=== PATIENT | female | born 1965 | race Caucasian/White ===

== ENCOUNTER 2017-03-09 15:28 | Outpatient (CLI) ==
[2017-03-11 09:32] VITALS: BMI 33.6
== END 2017-03-09 15:29 | disposition critical access hospital (66) ==
LOC: AMBL 15:28
PROVIDERS: ATTEND Emergency Medicine
DX: S09.93XA Unspecified injury of face, initial encounter (principal); Y04.8XXA Assault by other bodily force, initial encounter

== ENCOUNTER 2017-03-09 15:44 | Emergency (ER) ==
[2017-03-09 15:57] VITALS: BP 145/94; TEMP 98.2; BMI 33.6
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
--- NOTE | 2017-03-09 17:03 | CT ---
EXAM: CT of the maxillofacial region without contrast History: Facial trauma. Technique: Multiplanar CT images through the maxillofacial region were obtained without the administ ration of IV contrast Findings: Orbits are intact. The visualized intracranial contents demonstrate no grossly acute find ings. No parotid or submandibular gland inflammation. Mildly displaced left nasal bone fracture wit h adjacent soft tissue swelling. There is also a mildly displaced fracture of the left medial orbital wall that is probably old. There is mild to moderate mucosal thickening of the ethmoid air cells and sphenoid sinuses. There is mild mucosal thickening of the bilateral maxillary sinuses. Mild mucosa l thickening of the frontal sinuses. Nasal septum is undulating. There is a fracture within the ade al septum proximally and within its midportion which are minimally displaced. Moderate degenerative disc disease at C5-6. Multiple missing teeth and multiple dental caries. Periapical dental lucencie s involving right mandibular tooth. Mastoid air cells are generally clear. Impression: 1. Mildly displaced left nasal bone fracture. 2. Nondisplaced fractures of the nasal septum. 3. Most likely old left medial orbital wall fracture. 4. Paranasal sinusitis.
== END 2017-03-09 17:26 | disposition home or self-care (01) ==
LOC: ED 15:44
DX: R04.0 Epistaxis (principal); S09.93XA Unspecified injury of face, initial encounter; Y04.2XXA Assault by strike against or bumped into by another person, initial encounter; F17.210 Nicotine dependence, cigarettes, uncomplicated
CPT/HCPCS: 99283

== ENCOUNTER 2017-08-03 09:37 | Outpatient (CLI) ==
[2017-08-03 15:06] VITALS: BMI 36.8
== END 2017-08-03 09:42 | disposition critical access hospital (66) ==
LOC: AMBL 09:37
PROVIDERS: ATTEND Internal Medicine Geriatric Medicine
DX: R55 Syncope and collapse (principal); R06.02 Shortness of breath; R19.7 Diarrhea, unspecified; R06.2 Wheezing; W19.XXXA Unspecified fall, initial encounter

== ENCOUNTER 2017-08-03 09:50 | Inpatient (IN) ==
--- NOTE | 2017-08-03 10:19 | ED.PDOC ---
General ED Provider: Dr. IAN MCGARRY Chief Complaint: Respiratory Complaint Stated Complaint: Patient is a 52 year old female who comes to the ER with c/o Shortness of Air x 3 days, nonproductive cough and Body aches. Also complains of diarrhea x 2 days with Low grade temp, 99.3. She states she has taken Mucinex and Ibuprofen. States she has not taking any Med for a couple days. Had syncopal episode at home but remembers everything. Time Seen by Physician: 10:16 Mode of Arrival: Stretcher Information Source: Patient Exam Limitations: No limitations Primary Care Provider: RISHABH MATAMOROS Nursing and Triage Documentation Reviewed and Agree: Yes Reviewed sepsis parameters & appropriate labs ordered?: No (does not qualify.) System Inflammatory Response Syndrome: Not Applicable Sepsis Protocol: For patient's 13 years and over: Temp is 96.8 and below OR 101 and greater Pulse >90 BPM Resp >20/minute Acutely Altered Mental Status Are patient's symptoms suggestive of a new infection, such as: -Pneumonia -Skin, Soft Tissue -Endocarditis -UTI -Bone, Joint Infection -Implantable Device -Acute Abdominal Infection -Wound Infection -Meningitis -Blood Stream Catheter Infection -Unknown System Inflammatory Response Syndrome: Not Applicable Review of Systems - Review Of Systems Constitutional: Reports: Chills, Fever, Malaise, Loss of appetite Eyes: Reports: No symptoms Ears, Nose, Mouth, Throat: Reports: No symptoms Respiratory: Reports: Cough, Short of air, Wheezing Cardiac: Reports: No symptoms GI: Reports: No symptoms : Reports: No symptoms Musculoskeletal: Reports: No symptoms Skin: Reports: No symptoms Neurological: Reports: Anxiety Endocrine: Reports: No symptoms Hematologic/Lymphatic: Reports: No symptoms All Other Systems: Reviewed and Negative Past Medical History - Past Medical History Previously Healthy: Yes Endocrine: Reports: Hypothyroid, Dyslipidemia Cardiovascular: Reports: None Respiratory: Reports: None Hematological: Reports: None Gastrointestinal: Reports: None Genitourinary: Reports: Kidney stones Neuro/Psych: Reports: Anxiety, Depression Musculoskeletal: Reports: None Cancer: Reports: None Last Menstrual Period: unknown Other Pertinent Past Medical History: 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 - Surgical History General Surgical History: Reports: , Cholecystectomy, Other (lip surgery; eye surgery; Bartholin Gland surgery; ) - Family History Family History: Reports: None - Social History Smoking Status: Heavy tobacco smoker, Current every day smoker Hx Substance Use: No Alcohol Screening: None Physical Exam - Physical Exam Appearance: Ill-appearing, Obese Ill-appearing: Mild Pain Distress: Mild Eyes: SEPIDEH Neck: Supple Respiratory: Airway patent, Breath sounds equal, Breath sounds diminished, Respirations nonlabored, Rhonchi, Wheezes Cardiovascular: RRR, Pulses normal, No rub, No murmur GI/: Soft, Nontender, No masses, Bowel sounds normal, No Organomegaly Musculoskeletal: Normal strength, ROM intact, No edema, No calf tenderness Skin: Warm, Dry, Normal color Neurological: Sensation intact, Motor intact, Alert, Oriented Psychiatric: Anxious Interpretation - Radiology Interpretation Radiology Interpretation By: Radiologist Radiology Results: Negative Exam Interpreted: CXR Physician Notification - Case Discussed Physician Notified: Dr Preston Time of Notification: 12:40 (ok to admit ) Critical Care Note - Critical Care Note Total Time (mins): 0 Course - Course Hematology/Chemistry: 08/03/17 11:05 08/03/17 11:05 Orders, Labs, Meds: Lab Review 08/03/17 08/03/17 08/03/17 10:30 10:39 11:05 WBC 7.89 RBC 4.46 Hgb 14.1 Hct 42.4 MCV 95.1 MCH 31.6 H MCHC 33.3 RDW Coeff of Stacey 13.4 Plt Count 147 Immature Gran % (Auto) 0.5 Neut % (Auto) 67.6 Lymph % (Auto) 21.4 Graves % (Auto) 10.1 H Eos % (Auto) 0.0 Baso % (Auto) 0.4 Immature Gran # (Auto) 0.0 Neut # 5.3 Lymph # 1.7 Graves # 0.8 Eos # 0.0 Baso # 0.0 Puncture Site Rrad O2 Saturation 91.0 L ABG pH 7.435 ABG pCO2 34.0 L ABG pO2 59.0 L* ABG HCO3 22.8 ABG Total CO2 24 ABG Base Excess -1 Oren Test + FiO2 % 21.0 Sodium Potassium Chloride Carbon Dioxide Anion Gap BUN Creatinine Estimated GFR (MDRD) BUN/Creatinine Ratio Glucose Lactic Acid Calcium Total Bilirubin AST ALT Alkaline Phosphatase Total Protein Albumin Globulin Albumin/Globulin Ratio Procalcitonin Influenza A (Rapid) Negative by naat Influenza B (Rapid) Positive by naat H 08/03/17 08/03/17 08/03/17 11:05 11:05 11:05 WBC RBC Hgb Hct MCV MCH MCHC RDW Coeff of Stacey Plt Count Immature Gran % (Auto) Neut % (Auto) Lymph % (Auto) Graves % (Auto) Eos % (Auto) Baso % (Auto) Immature Gran # (Auto) Neut # Lymph # Graves # Eos # Baso # Puncture Site O2 Saturation ABG pH ABG pCO2 ABG pO2 ABG HCO3 ABG Total CO2 ABG Base Excess Oren Test FiO2 % Sodium 134 L Potassium 3.1 L Chloride 102 Carbon Dioxide 21 Anion Gap 14.1 BUN 7 Creatinine 0.83 Estimated GFR (MDRD) 73.00 BUN/Creatinine Ratio 8.43 Glucose 119 H Lactic Acid 8.0 Calcium 8.5 Total Bilirubin 0.3 AST 23 ALT 21 Alkaline Phosphatase 91 Total Protein 7.6 Albumin 3.1 L Globulin 4.5 Albumin/Globulin Ratio 0.69 Procalcitonin 0.07 Influenza A (Rapid) Influenza B (Rapid) Orders Category Date Time Status [facility] ADMISSION 08/03/17 12: 45 Active ABG DRAW REQUEST Stat CARDIO 08/03/17 10:41 Completed NEBULIZER TREATMENT Stat CARDIO 08/03/17 10:41 Completed TELEMETRY MONITORING TELE CARE 08/03/17 12:49 Active ABG Stat LAB 08/03/17 10:39 Completed BLOOD CULTURE (ED ONLY) Stat LAB 08/03/17 11:05 Received CBC W/ AUTO DIFF Stat LAB 08/03/17 11:05 Completed CMP [COMPREHENSIVE METABOLIC PANEL] Stat LAB 08/03/17 11:05 Completed FLU A/B MOLECULAR Stat LAB 08/03/17 10:30 Completed INFLUENZA A&B AB, QUANT Stat LAB 08/03/17 11:55 Received LACTIC ACID Stat LAB 08/03/17 11:05 Completed PROCALCITONIN Stat LAB 08/03/17 11:05 Completed RAPID STREP SCREEN [MOLECULAR GROUP A STREP] Stat LAB 08/03/17 10:30 Completed SPUTUM CULTURE Stat LAB 08/03/17 12:44 Uncollected Ipratropium/Albuterol Neb [Duoneb] MEDS 08/03/17 10:39 Discontinued 1 vial NEB ONCE STA Methylprednisolone Sod Succ/Pf [Solu-Medrol 125 mg] MEDS 08/03/17 10:40 Discontinued 125 mg IVP ONCE STA Oseltamivir Phosphate [Tamiflu] MEDS 08/03/17 12:21 Discontinued 75 mg PO ONCE STA CHEST, 2 VIEWS PA & LAT Stat RADS 08/03/17 10:40 Completed Medications Discontinued Medications Generic Name Dose Route Start Last Admin Trade Name [place] PRN Reason Stop Dose Admin Albuterol/Ipratropium 1 vial 08/03/17 10:39 08/03/17 11:30 Duoneb NEB 08/03/17 10:40 1 vial ONCE STA Administration Methylprednisolone Sodium Succinate 125 mg 08/03/17 10:40 08/03/17 11:09 Solu-Medrol 125 Mg IVP 08/03/17 10:41 125 mg ONCE STA Administration Oseltamivir Phosphate 75 mg 08/03/17 12:21 08/03/17 12:30 Tamiflu PO 08/03/17 12:22 75 mg ONCE STA Administration Vital Signs: Temp Pulse Resp BP Pulse Ox 08/03/17 09:52 99.3 F 95 H 24 105/59 L 96 Departure - Departure Time of Disposition: 12:51 Disposition: ADMITTED INPATIENT Discharge Problem: Influenza B, Bronchitis, Hypoxia, Hypokalemia Condition: Stable Pt referred to PMD for follow-up: No IPMP verified?: No Allergies/Adverse Reactions: Allergies codeine Adverse Reaction (Verified 08/03/17 09:59) Home Medications: Ambulatory Orders 1 [No Reported Medications] 03/09/17 Disposition Discussed With: Patient
[2017-08-03] MEDS ORDERED: DUONEB NEB STA (10:39)
[2017-08-03] MEDS ORDERED: SOLU-MEDROL 125 MG IVP STA (10:40)
--- NOTE | 2017-08-03 11:14 | DI ---
EXAM: PA and lateral views of the chest HISTORY: Cough COMPARISON: 06/06/2012 FINDINGS: No focal consolidation, pleural effusion or pneumothorax is seen. A right basilar calcified granulom a is re-identified. The cardiomediastinal silhouette is within normal limits. IMPRESSION: No acute cardiopulmonary findings. Evidence of prior granulomatous infection.
[2017-08-03] MEDS ORDERED: TAMIFLU PO STA (12:21)
[2017-08-03] MEDS: INFUVITE ADULT 10 ML in D5%-NS-KCL 20 MEQ/L IV SOL 1,000 ML IV SCH (14:13)
[2017-08-03] MEDS ORDERED: INFUVITE ADULT IV ONE (14:16)
[2017-08-03] MEDS: LOVENOX SUBCUT SCH (14:17)
[2017-08-03 15:06] VITALS: BMI 36.8
[2017-08-03] MEDS: NORCO 5-325 PO PRN ×2 (16:47→22:51)
[2017-08-03] MEDS: DUONEB NEB SCH ×2 (17:05→23:30)
[2017-08-03] MEDS: TAMIFLU PO SCH (20:07)
[2017-08-04] MEDS ORDERED: INFUVITE ADULT IV ONE ×2 (02:01→14:04)
[2017-08-04] MEDS: INFUVITE ADULT 10 ML in D5%-NS-KCL 20 MEQ/L IV SOL 1,000 ML IV SCH ×2 (02:10→14:16)
[2017-08-04] MEDS: DUONEB NEB SCH ×4 (05:41→23:29)
[2017-08-04] MEDS: NORCO 5-325 PO PRN ×3 (07:39→20:16)
[2017-08-04] MEDS: TAMIFLU PO SCH ×2 (08:59→20:16)
[2017-08-04] MEDS: LOVENOX SUBCUT SCH (08:59)
[2017-08-04] MEDS ORDERED: TUSSIONEX PO SCH (22:00)
[2017-08-04] MEDS ORDERED: ROCEPHIN ONE (22:48)
[2017-08-04] MEDS: ROCEPHIN 2 GM in SODIUM CHLORIDE 100 ML IV SCH (22:58)
[2017-08-05] MEDS ORDERED: MOTRIN PO STA (02:36)
[2017-08-05] MEDS ORDERED: INFUVITE ADULT IV ONE ×2 (03:02→16:44)
[2017-08-05] MEDS: INFUVITE ADULT 10 ML in D5%-NS-KCL 20 MEQ/L IV SOL 1,000 ML IV SCH ×2 (03:10→16:49)
[2017-08-05] MEDS: DUONEB NEB SCH ×3 (05:27→18:10)
[2017-08-05] MEDS: TUSSIONEX PO SCH ×2 (08:35→20:51)
[2017-08-05] MEDS: LOVENOX SUBCUT SCH (08:35)
[2017-08-05] MEDS: ROCEPHIN 2 GM in SODIUM CHLORIDE 100 ML IV SCH (08:35)
[2017-08-05] MEDS: TAMIFLU PO SCH ×2 (08:35→20:51)
[2017-08-05] MEDS ORDERED: MOTRIN PO ONE (20:00)
[2017-08-06] MEDS: DUONEB NEB SCH ×5 (00:10→23:03)
[2017-08-06] MEDS ORDERED: INFUVITE ADULT IV ONE (04:30)
[2017-08-06] MEDS: INFUVITE ADULT 10 ML in D5%-NS-KCL 20 MEQ/L IV SOL 1,000 ML IV SCH (05:19)
[2017-08-06] MEDS: ROCEPHIN 2 GM in SODIUM CHLORIDE 100 ML IV SCH (09:11)
[2017-08-06] MEDS: TUSSIONEX PO SCH ×2 (09:12→20:46)
[2017-08-06] MEDS: LOVENOX SUBCUT SCH (09:12)
[2017-08-06] MEDS: TAMIFLU PO SCH ×2 (09:12→20:46)
[2017-08-07] MEDS: DUONEB NEB SCH ×4 (04:48→20:30)
[2017-08-07] MEDS: TAMIFLU PO SCH ×2 (08:30→20:50)
[2017-08-07] MEDS: TUSSIONEX PO SCH ×2 (08:30→20:50)
[2017-08-07] MEDS: LOVENOX SUBCUT SCH (08:31)
[2017-08-07] MEDS ORDERED: ROCEPHIN 2 GM in SODIUM CHLORIDE 50 ML IV SCH (09:00)
[2017-08-07] MEDS ORDERED: LIDOCAINE HCL 1% SDV IM STA (12:13)
--- NOTE | 2017-08-07 12:36 | CT ---
EXAM: CT chest without contrast. HISTORY: Shortness of breath, cough. COMPARISON: Radiograph 08/03/2017. TECHNIQUE: Multiple axial images of the chest were obtained without intravenous contrast. Images we re reformatted in the sagittal and coronal planes. FINDINGS: Calcified mediastinal and right hilar lymph nodes are present. There is a small amount pe ricardial fluid. Heart size is normal. Peribronchial thickening with centrilobular nodules seen thr oughout both lungs. Calcified granulomatous changes are present. No pleural effusion or pneumothora x identified. Limited images of the upper abdomen demonstrate no acute finding. Degenerative changes seen in the s pine. IMPRESSION: Bilateral bronchial thickening and centrilobular nodules suggesting airways infection/inflammation. Follow-up CT in 3 months recommended for reassessment.
--- NOTE | 2017-08-07 12:49 | PN ---
DATE OF VISIT: 08/05/17 SUBJECTIVE: The patient is alert, responsive and cooperative with movement of all extremities. She told me that she is feeling better today. She is eating most of her meals, 100%. OBJECTIVE: V/S: 5:38 p.m. showed a temperature of 97.4, pulse 71, blood pressure 115/81, respiratory rate 20, oxygen saturation 97 on 2L. CHEST: Symmetrical and equal with good expansion. LUNGS: Bilateral expiratory wheezing, lower lobes. No rales. HEART: Audible and regular with good tones. ABDOMEN: Nontender. LOWER EXTREMITIES: Legs have no tenderness. LABS: Today showed WBC 8.77, hemoglobin 12.6, hematocrit 37.9. Chemistry normal except for a low albumin 2.7, 3.1 on admission. This patient was positive for Influenza B. Still do not have the antibodies for Influenza A and B. [facility]
--- NOTE | 2017-08-07 13:07 | PN ---
DATE OF VISIT: 08/06/17 SUBJECTIVE: The patient is alert and oriented. She is feeling better. Her appetite is good. OBJECTIVE: V/S at 1:59 p.m. showed a temperature of 98, pulse 73, BP 106/67, respiratory rate 20, oxygen saturation 95% on 2L. It is sometimes listed as room air. I need to make sure that labeling of these are correct. It is very important that these things are labeled correctly with the oxygen saturation. I will bring this up tomorrow with the nurses. LUNGS: Now have clear breath sounds and no wheezing anymore including the bases. HEART: Audible and regular with good tones. PLAN: 1. Will get labs tomorrow plus arterial blood gases. 2. Chest x-ray if not already ordered. CONDITION: Improved. MTDD
[2017-08-07] MEDS: ROCEPHIN IM SCH (13:11)
--- NOTE | 2017-08-07 13:39 | PN ---
DATE OF VISIT: 08/04/17 SUBJECTIVE: The patient today is alert, still not feeling well with repetitive cough, mostly nonproductive. This patient came in because of shortness of breath, cough and was positive for Influenza B by nuclear amplification. OBJECTIVE: Vital signs at 5:44 p.m.: Temperature 98.3, pulse 86, BP 127/86, respiratory rate 18, oxygen saturation 96 on room air. NECK: No rigidity. No adenitis. LUNGS: Breath sounds are heard on both sides, diminished with respiratory wheezing on both lower lung mensah. HEART: Audible and regular with good tones. ABDOMEN: Nontender. This patient is receiving Tamiflu only. The patient will give given 2 gm of Rocephin intravenously beginning tonight. CBC plus CMP will be ordered tomorrow. Blood culture is still negative. MTDD
[2017-08-07] MEDS: INFUVITE ADULT 10 ML in D5%-NS-KCL 20 MEQ/L IV SOL 1,000 ML IV SCH (14:16)
[2017-08-07] MEDS: AVELOX PO SCH (17:24)
[2017-08-08] MEDS: DUONEB NEB SCH ×4 (06:10→20:15)
[2017-08-08] MEDS: AVELOX PO SCH (06:25)
[2017-08-08] MEDS: TUSSIONEX PO SCH (08:04)
[2017-08-08] MEDS: TAMIFLU PO SCH (08:05)
[2017-08-08] MEDS: ROCEPHIN IM SCH (08:05)
[2017-08-08] MEDS: LOVENOX SUBCUT SCH (08:06)
[2017-08-08] MEDS: SYNTHROID PO SCH (10:25)
[2017-08-08] MEDS ORDERED: GENTAMICIN SULFATE ONE (19:32)
[2017-08-08] MEDS: GENTAMICIN SULFATE 80 MG in SODIUM CHLORIDE 50 ML IV SCH ×2 (19:40→20:45)
--- NOTE | 2017-08-08 19:43 | DI ---
EXAM: Two-view chest HISTORY: Follow up bronchitis COMPARISON: Two-view chest 08/03/2017 FINDINGS: The cardiomediastinal silhouette is stable. There is a calcified granuloma at the right lung base.. There is no evidence of infiltrate or effusion. Degenerative changes are seen within th e mid and lower dorsal spine. IMPRESSION: No evidence of active pulmonary disease. Benign granulomatous changes
[2017-08-09] MEDS: DUONEB NEB SCH ×3 (05:10→14:08)
[2017-08-09] MEDS: AVELOX PO SCH (05:32)
[2017-08-09] MEDS: GENTAMICIN SULFATE 80 MG in SODIUM CHLORIDE 50 ML IV SCH ×2 (05:32→13:16)
[2017-08-09] MEDS: SYNTHROID PO SCH (05:32)
[2017-08-09] MEDS ORDERED: ROCEPHIN 2 GM in SODIUM CHLORIDE 50 ML IV SCH (09:00)
[2017-08-09] MEDS: LOVENOX SUBCUT SCH (09:27)
[2017-08-09 17:05] VITALS: BP 126/87; TEMP 97.3
--- NOTE | 2017-08-13 07:09 | PN ---
DATE OF VISIT: 08/08/17 SUBJECTIVE: The patient is alert, oriented times four, not dyspneic or tachypneic without any oxygen now. She had been walking in the hallway. The nurses were telling me that she had been going out to smoke and had done several times. I did asked her if she smokes and she said, "yes a little bit". I did advise her that she could not smoke at all while she is having this problem. She was wheezing yesterday and that is probably the reason why the wheezing had reoccurred because of her smoking. I did tell her today that she absolutely could not smoke if she wants to get better. I also advised her that she has a hypothyroid condition and she was initiated on a medication to replace her thyroid hormones. OBJECTIVE: LUNGS: Have squeaks at the bases, more on the right side. There is no expiratory wheezing. VITAL SIGNS: At 5:42 p.m. today showed a temperature 97.5, pulse rate of 92, BP 116/78, respiratory rate 24, oxygen saturation 92 on room air. She had saturation as high as 97 on room air. Sputum did grow gram negative coccobacilli , heavy growth. The patient's medication will be changed probably to Garamycin. The patient might have Pseudomonas or Klebsiella. We are waiting for the ID. Blood cultures negative after five days. The patient's medications Ceftriaxone and Moxifloxacin. The Ceftriaxone would probably be changed to Garamycin. The patient did not have a CBC or chemistry today. GFR yesterday was 95 and the day before. She is only allergic to Codeine. The patient is 228 lbs. She will be given Garamycin 70 mg intravenously q.8hr. Chest x-ray also will be done tomorrow plus a CBC and CMP. An arterial blood gas may be done but I will not order it until tomorrow. [facility]
--- NOTE | 2017-08-13 14:01 | HP ---
CHIEF COMPLAINT: Shortness of breath, bodyaches, nonproductive cough, low grade temperature, diarrhea and near syncopal episode. The patient has total recall of what happened. HISTORY OF PRESENT ILLNESS: The patient presented to the office because of the persistent shortness of breath which has now lasted for three days with low grade temperature. The patient was found to have wheezing and rhonchi while in the emergency room but the chest x-ray does not indicate any abnormalities. The arterial blood gases were abnormal showing moderate hypoxemia. Rapid A & B by nuclear amplification showed a positive Influenza B. The patient the need for hospitalization because of the moderate hypoxemia, fever, rhonchi plus wheezing. PAST PERSONAL HISTORY: The patient had kidney stones in the past, detached retina (was operated), two sections, Bartholin Gland cyst was removed by surgery, cholecystectomy. The patient also had been diagnosed with depression and anxiety plus arthritis and headaches occasional. The patient was diagnosed with hypothyroidism in the past but the patient does not have any medication for this. She had taken Mucinex and Ibuprofen prior to presentation to the emergency room for the above problem. FAMILY HISTORY: History of diabetes on the maternal side of the family. SOCIAL HISTORY: The patient is and resides with her and her father. She does smoke cigarettes and moderate user. She told me that she stopped smoking before she came to the hospital. She denied any alcohol use. MEDICATIONS: (PRIOR TO ADMISSION) None except the Mucinex and Ibuprofen. No long-term medications given. ALLERGIES: CODEINE REVIEW OF SYSTEMS: CONSTITUTIONAL: The patient had low grade fever but no chills just some fatigue. ANESTHESIOLOGIST ASSISTANT CERTIFIED: The patient had syncopal episode with total recall of what happened. No residual motor weakness after the syncope. The patient has seizures. VISUAL: The patient denies any double vision, blurred vision or transient loss of vision. AUDITORY: The patient is able to hear and denies any tinnitus, pain or drainage. RESPIRATORY: The patient has nonproductive cough most of the time repetitive with some shortness of breath. Arterial blood gases are abnormal. pH 7.435, oxygen saturation 91, pc02 34, p02 59, base excess minus 1, FI02 21%. CARDIOVASCULAR: The patient denies any chest pain or chest oppression. GASTROINTESTINAL: The patient had diarrhea about two days prior to presentation. No significant abdominal pain. GENITOURINARY: Denies any burning on urination. MUSCULOSKELETAL: The patient has bodyaches, less generalized. ENDOCRINE: The patient has history of hypothyroidism but not on any medication. INTEGUMENT: Denies any rash or pruritus. HEMATOLOGIC: No history of prolonged bleeding or easy bruising. PSYCHIATRIC: Affect appears to be normal. PHYSICAL EXAMINATION: GENERAL: 52-year-old female admitted to the hospital because of cough , fever, moderate hypoxemia with rales and wheezing but a negative chest x-ray for any cardiopulmonary disease. VITAL SIGNS: On admission to the floor, temperature 98.1, pulse 72, BP 100/62 left; 107/74 right, respiratory rate 20, oxygen saturation 94 with 2L of nasal oxygen. HEAD: Unremarkable. Face is symmetrical and equal. No facial weakness. No redness. No significant tenderness to palpation and/or pressure in the frontomaxillary sinus areas. EYES: Pupils equal/reactive to light about 3 mm in size. Conjunctivae not pale. Sclerae not icteric. MOUTH: Unremarkable. THROAT: No inflammation, tumors or exudate. NECK: No masses. No bruit. No tenderness. No rigidity. CHEST: Essentially symmetrical and equal with good expansion. LUNGS: Breath sounds are heard on both sides, diminished with expiratory wheezing at both bases. HEART: Audible and regular with good tones. No murmurs. ABDOMEN: Slightly protuberant, pendulous, soft, no significant tenderness. No masses palpable. Bowel sounds active. No bruit. EXTERNAL GENITALIA: Not examined. PELVIC/RECTAL: Not performed. LOWER EXTREMITIES: Symmetrical and equal. Pedal pulses are present but posterior tibials are very difficult to find. UPPER EXTREMITIES: Symmetrical and equal. ASSESSMENT: 1. ACUTE BRONCHITIS, PROBABLY VIRAL 2. HYPOXEMIA SECONDARY TO #1 3. CHRONIC TOBACCO USE AND ABUSE, PERSISTENT 4. VIRAL SYNDROME, INFLUENZA B POSITIVE BY NUCLEAR AMPLIFICATION 5. ELEVATED BMI, 36.8 6. HISTORY OF CHOLECYSTECTOMY 7. TWO SECTIONS 8. RETINAL DETACHMENT 9. EXCISION OF BARTHOLIN CYST 10. LIP SURGERY MTDD
--- NOTE | 2017-08-15 09:54 | DS ---
PATIENT IDENTIFICATION: 52 year old female admitted to the hospital by the emergency room because of cough, muscular aches, shortness of breath in the last three days prior to presentation. She also did experience syncopal episode at home with total recollection of what happened. The patient had taken ibuprofen and Mucinex for the problems. The patient at the emergency room had an arterial blood gasses showing normal pH with moderate hypoxemia with FiO2 21%. Chest x- ray showed no acute cardiopulmonary processes and CBC was normal. Chemistry showed slightly lower potassium at 3.1. The patient was noted to have rhonchi at the emergency room as well as wheezing. The patient at time of my examination had expiratory wheezing in both lower chest mensah. The patient had a positive influenza B but nuclear amplification and she was then medicated with Tamiflu 75mg twice a day. The sputum cultures and blood cultures were obtained prior to the antibiotics administration. This patient claimed to have no prior medications except the Mucinex and ibuprofen. The patient while in the emergency room was given a dose of Methylprednisolone 125mg once and DUO NEBS nebulizer. HOSPITAL COURSE: The patient while in the hospital was continued on DUO NEBS nebulizer Q 6 hours with Lovenox 30mg SUBCUT daily, Tamiflu 75mg every 12 hours for 5 days. The patient was given intervenous Dextrose 5% normal saline with 20ml of KCL and MVI. She also was given Rocephin 2 grams intervenously daily and Moxifloxacin 400mg daily orally. Sputum culture did show gram negative coccobacilli and Ceftriaxone was discontinued and replaced with Gentamicin. However after identification of the bacteria, Haemophilus influenza the medication was changed back to Ceftriaxone and then discharged with Omnicef. I did touch base with the Pharm D with regards to the Ceftriaxone sensitivity to Haemophilus influenza and Omnicef is a third generation whether that would be a suitable oral replacement. The pharmacy did agree that it would be suitable to give Omnicef. The patient had a chest CT 08/07/17 because of persistent wheezing although it disappeared the day before. I came to know that the patient had been out several times to smoke and the patient had been telling me that she had stopped smoking before she came into the hospital. I did discuss this with the patient that it would not brar for her to be smoking since she has lung problems and it is an active problem. The CT chest showed some bilateral bronchiolar thickening and central lobular nodules suggesting airway infection or inflammation. Repeat CT follow in 3 months. Blood cultures were negative and the Influenza A and B antibodies showed a titer 1:32A and 1:8 for B. It would be reasonable to repeat these antibody titers in about 2-3 weeks from the time of discharge. The patient on 08/08/17 again went out to smoke. I did talk to Aracely Venecia and she told me that the patient even asked Afshan, who is the nurse that was working with her, if she has any cigarettes. The patient on the day of discharge was alert, ambulatory with dyspneic or tachypneic and no cyanosis. The CBC showed normal WBC 8,760, RBC 4.03, hgb 13, hct 39.1, MCV 97 , MCH 32.3, slightly elevated. Chemistry is normal except for slightly lower albumin 3.0. The patient's TSH was elevated 39.385 and repeated on 08/07/17 the same day the report was 51.776. This patient initially mentioned that she had some thyroid problems but there is no medication for the problem. The free T3 is 1.7 with normal range of 2.0 to 4.4. Total T4 lowest border 4.6 range of normal 4.5 to 12. The patient's procalcitonin was normal on admission. This patient was initiated on 25mcg of Synthroid and to be increased every 3 weeks or there about. The patient's vital signs at the time of discharge 08/09/17 showed a temperature of 97.3, pulse 82, blood pressure 126/87, respiratory rate 18, oxygen saturation 97 at room air. The patient was wanting to go home according to the nurse and I did walk into the room and she repeated the desire to go home. Her general appearance is good. LUNGS: have no rales and no wheezing. HEART audible and regular ABDOMEN: Nontender LOWER EXTREMITIES: no tenderness in the calf muscles. FINAL DIAGNOSES: 1. Viral Syndrome, Influenza B 2. Acute bronchitis, maybe secondary to #1 3. Chronic tobacco use and abuse persistent 4. Hypothyroidism initiated on replacement therapy 5. Markedly elevated BMI 36.8 PLAN: 1. Followup with the clinic on Saturday08/12/17 2. Take the medication as prescribed; Levothyroxine 25mcg #31 daily to be adjusted accordingly and Omnicef 300mg every 12 hours 3. She was advised to stop smoking. PROGNOSIS: Guarded MTDD
--- NOTE | 2017-08-15 13:39 | PN ---
DATE OF VISIT: 08/07/17 SUBJECTIVE: The patient is alert, ambulatory. OBJECTIVE: V/S at 2 p.m. showed a temperature of 97.9, pulse 77, BP 112/65, respiratory rate 20, oxygen saturation 97 on room air. LABS: Done this morning showed normal WBC, lower normal hemoglobin and hematocrit slightly below normal. Arterial blood gases done with FI02 21% showed oxygen saturation at 90, pH 7.459, pc02 40.9, p02 56, HC03 29, total c02 30, base excess +5. The oxygen saturation with arterial blood gases is low, the ones obtained by the nurses are satisfactory. I am not sure what the numbers are or which one is right. The electrolytes are normal. The c02 on the CMP is 28, BUN 10, creatinine 0.66, AGFR is 95, same as yesterday. AST slightly elevated at 41 , ALT remained normal. The TSH done today is 39.389. The other tests for thyroid are pending; however, this one will be repeated to see if the numbers are consistenet and it should be repeated on a different sample. I don't know what the source of the Haemophilus influenza but I am waiting. This patient today refused to have an IV access started and so she was given 1 gm of Rocephin IM. She will be given Avelox [address] of the chest today showed bilateral bronchial thickening and central lobular nodules suggesting inflammation or infection. MTDD
== END 2017-08-09 18:44 | disposition home or self-care (01) | DRG 866 ==
LOC: ED 09:50 → MEDSURG B 12:55
PROVIDERS: ADMIT General Practice; ATTEND General Practice
DX: B34.9 Viral infection, unspecified (principal); J10.1 Influenza due to other identified influenza virus with other respiratory manifestations; J20.9 Acute bronchitis, unspecified; R09.02 Hypoxemia; E87.6 Hypokalemia; R06.02 Shortness of breath; B96.3 Hemophilus influenzae [H. influenzae] as the cause of diseases classified elsewhere; R19.7 Diarrhea, unspecified; E03.9 Hypothyroidism, unspecified; E66.9 Obesity, unspecified; Z68.36 Body mass index [BMI] 36.0-36.9, adult; Z16.11 Resistance to penicillins; F17.210 Nicotine dependence, cigarettes, uncomplicated
CPT/HCPCS: 36415; 80053; 82803; 83605; 83880; 84145; 84436; 84443; 84480; 84481; 85007; 85025; 86710; 87040; 87070; 87077; 87186; 87502; 87651; 93005; 93010; 94640; 96374; 99223; 99232; 99239; 99284

== ENCOUNTER 2018-09-18 22:13 | Observation (INO) ==
[2018-09-18 22:25] VITALS: BP 127/90; BMI 39.4
[2018-09-18] MEDS ORDERED: DUONEB NEB STA (22:47)
[2018-09-18] MEDS ORDERED: TORADOL IVP STA (22:47)
[2018-09-18] MEDS ORDERED: LACTATED RINGERS 1,000 ML IV STA (22:47)
--- NOTE | 2018-09-18 22:50 | ED.PDOC ---
General ED Provider: Dr. IAN MCGARRY Chief Complaint: Fever Stated Complaint: Patient is a 53 year old female who comes to the ER with fever Temp of 100.3 at home, productive cough, Bilateral ear pain, congestion, Chest wall pain with coughing. Headache with coughing. Took Ecedrin migrane medication prior to arrival. Time Seen by Physician: 22:48 Mode of Arrival: Walk-In Information Source: Patient Primary Care Provider: RISHABH MATAMOROS Nursing and Triage Documentation Reviewed and Agree: Yes Does patient meet sepsis criteria?: Yes If yes, has appropriate treatment been initiated?: Yes (NS ) System Inflammatory Response Syndrome: Pulse >90 BPM, Resp >20/Minute Sepsis Protocol: For patient's 13 years and over: Temp is 96.8 and below OR 101 and greater Pulse >90 BPM Resp >20/minute Acutely Altered Mental Status Are patient's symptoms suggestive of a new infection, such as: -Pneumonia -Skin, Soft Tissue -Endocarditis -UTI -Bone, Joint Infection -Implantable Device -Acute Abdominal Infection -Wound Infection -Meningitis -Blood Stream Catheter Infection -Unknown Miscellaneous Complaint Exam - Febrile Illness/Adult Complaint/Exam Onset/Duration: 1 day Symptoms Are: Still present Timing: Constant Highest Temperature Recorded: 100.9 Associated Signs and Symptoms: Reports: Headache, Short of air, Cough, Arthralgia Related History: Denies: Similar episode, Recent tick bite, Recent tick exposure Pseudomonas Risk Factors: Reports: None Serious Bacterial Infection Risk Factors: Reports: None Current Antibiotic Use: No Differential Diagnoses: Pyelonephritis, Sepsis, Other (pneumoni) Quality Indicator For Non-Traumatic Chest Pain/Syncope: EKG Performed Review of Systems - Review Of Systems Constitutional: Reports: Chills, Fever Ears, Nose, Mouth, Throat: Reports: No symptoms Respiratory: Reports: Cough, Short of air, Wheezing Cardiac: Reports: Chest pain (with cough only ) GI: Reports: No symptoms : Reports: No symptoms Musculoskeletal: Reports: No symptoms Neurological: Reports: Anxiety, Headache Endocrine: Reports: Increased thirst Hematologic/Lymphatic: Reports: No symptoms All Other Systems: Reviewed and Negative Past Medical History - Past Medical History Previously Healthy: Yes Endocrine: Reports: Hypothyroid, Dyslipidemia Cardiovascular: Reports: None Respiratory: Reports: None Hematological: Reports: None Gastrointestinal: Reports: None Genitourinary: Reports: Kidney stones Neuro/Psych: Reports: Anxiety, Depression Musculoskeletal: Reports: None Cancer: Reports: None Last Menstrual Period: 2013 Other Pertinent Past Medical History: 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 - Surgical History General Surgical History: Reports: , Cholecystectomy, Other (lip surgery; eye surgery; Bartholin Gland surgery; ) - Family History Family History: Reports: None - Social History Smoking Status: Heavy tobacco smoker, Current every day smoker Hx Substance Use: No Alcohol Screening: None - Immunizations Tetanus Shot up to Date: Yes Physical Exam - Physical Exam Appearance: Ill-appearing, Obese Eyes: SEPIDEH, EOMI, Conjunctiva clear Neck: Supple Respiratory: Airway patent, Breath sounds clear, Breath sounds equal, Respirations nonlabored Cardiovascular: Tachycardia GI/: Soft Skin: Warm, Dry Neurological: Alert, Oriented Psychiatric: Anxious Interpretation - Radiology Interpretation Radiology Interpretation By: ED Physician Radiology Results: Positive Exam Interpreted: CXR - E/M Engineer Rate: Tachy Rhythm: Sinus - EKG Interpretation Time of EKG #1: 23:14 Rate: Tachy Rhythm: Sinus [place]: Right ST Segment: Normal Interpretation: sinus Tachy with fusion complexes. Physician Notification - Case Discussed Physician Notified: Dr Preston Time of Notification: 00:20 (admit to Telemetry ) Critical Care Note - Critical Care Note Total Time (mins): 50 Course - Course Hematology/Chemistry: 09/18/18 23:00 09/18/18 23:00 Orders, Labs, Meds: Lab Review 09/18/18 09/18/18 09/18/18 22:40 22:49 23:00 WBC 24.52 H RBC 3.83 L Hgb 12.0 Hct 35.9 L MCV 93.7 MCH 31.3 H MCHC 33.4 RDW Coeff of Stacey 13.2 Plt Count 258 Immature Gran % (Auto) 1.0 Neut % (Auto) 81.5 Lymph % (Auto) 9.4 L Lares % (Auto) 7.7 Eos % (Auto) 0.1 Baso % (Auto) 0.3 Immature Gran # (Auto) 0.3 Neut # (Auto) 20.0 H Lymph # (Auto) 2.3 Lares # (Auto) 1.9 Eos # (Auto) 0.0 Baso # (Auto) 0.1 Puncture Site Lb O2 Saturation 90.0 L ABG pH 7.545 H* ABG pCO2 26.9 L ABG pO2 60.0 L ABG HCO3 23.3 ABG Total CO2 24 ABG Base Excess 1 Oren Test + FiO2 % 21.0 Sodium Potassium Chloride Carbon Dioxide Anion Gap BUN Creatinine Estimated GFR (MDRD) BUN/Creatinine Ratio Glucose Lactic Acid Calcium Total Bilirubin AST ALT Alkaline Phosphatase Total Creatine Kinase CK-MB (CK-2) CK-MB (CK-2) % Troponin I Total Protein Albumin Globulin Albumin/Globulin Ratio Procalcitonin TSH Influ A Molecular Assay Negative by naat Influ B Molecular Assay Negative by naat 09/18/18 09/18/18 09/18/18 23:00 23:00 23:00 WBC RBC Hgb Hct MCV MCH MCHC RDW Coeff of Stacey Plt Count Immature Gran % (Auto) Neut % (Auto) Lymph % (Auto) Lares % (Auto) Eos % (Auto) Baso % (Auto) Immature Gran # (Auto) Neut # (Auto) Lymph # (Auto) Lares # (Auto) Eos # (Auto) Baso # (Auto) Puncture Site O2 Saturation ABG pH ABG pCO2 ABG pO2 ABG HCO3 ABG Total CO2 ABG Base Excess Oren Test FiO2 % Sodium 133.5 L Potassium 3.05 L Chloride 98.5 Carbon Dioxide 25.7 Anion Gap 12.35 BUN 11.5 Creatinine 0.84 Estimated GFR (MDRD) 71.00 BUN/Creatinine Ratio 13.69 Glucose 111.6 H Lactic Acid 0.84 Calcium 8.82 Total Bilirubin 0.46 AST 42.9 H ALT 36.2 H Alkaline Phosphatase 154.0 H Total Creatine Kinase CK-MB (CK-2) CK-MB (CK-2) % Troponin I Total Protein 7.72 Albumin 4.21 Globulin 3.51 Albumin/Globulin Ratio 1.19 Procalcitonin 0.62 TSH 39.200 H Influ A Molecular Assay Influ B Molecular Assay 09/18/18 23:00 WBC RBC Hgb Hct MCV MCH MCHC RDW Coeff of Stacey Plt Count Immature Gran % (Auto) Neut % (Auto) Lymph % (Auto) Lares % (Auto) Eos % (Auto) Baso % (Auto) Immature Gran # (Auto) Neut # (Auto) Lymph # (Auto) Lares # (Auto) Eos # (Auto) Baso # (Auto) Puncture Site O2 Saturation ABG pH ABG pCO2 ABG pO2 ABG HCO3 ABG Total CO2 ABG Base Excess Oren Test FiO2 % Sodium Potassium Chloride Carbon Dioxide Anion Gap BUN Creatinine Estimated GFR (MDRD) BUN/Creatinine Ratio Glucose Lactic Acid Calcium Total Bilirubin AST ALT Alkaline Phosphatase Total Creatine Kinase 440.7 H CK-MB (CK-2) 2.780 H CK-MB (CK-2) % 0.6300 Troponin I < 0.012 Total Protein Albumin Globulin Albumin/Globulin Ratio Procalcitonin TSH Influ A Molecular Assay Influ B Molecular Assay Orders Category Date Time Status ABG DRAW REQUEST Routine CARDIO 09/18/18 22:49 Ordered EKG-(ED ONLY) Stat CARDIO 09/18/18 22:52 Ordered NEBULIZER TREATMENT Routine CARDIO 09/19/18 00:19 Ordered NEBULIZER TREATMENT Stat CARDIO 09/18/18 22:48 Ordered OXYGEN Routine CARDIO 09/19/18 00:15 Ordered ACTIVITY .Early Mobilization for VTE Prevention CARE 09/19/18 00:15 Ordered INTAKE & OUTPUT Q8HR CARE 09/19/18 00:15 Ordered VITAL SIGNS Q4HR CARE 09/19/18 00:15 Ordered REGULAR DIET DIETARY 09/19/18 Breakfast Ordered ED APPLY O2 .ONCE EMERGENCY 09/18/18 22:47 Active ED TEST PULLER APPLIED .ONCE EMERGENCY 09/18/18 22:47 Active ED VITAL SIGNS Q1HR EMERGENCY 09/18/18 22:47 Active IV [ED IV/MEDIPORT/POWERPORT] .ONCE EMERGENCY 09/18/18 23:14 Active ABG Stat LAB 09/18/18 22:49 Completed BASIC METABOLIC PANEL DAILY@0600 LAB 09/19/18 06:00 Ordered BASIC METABOLIC PANEL DAILY@0600 LAB 09/20/18 06:00 Ordered BLOOD CULTURE (ED ONLY) Stat LAB 09/18/18 23:30 Received CBC W/ AUTO DIFF DAILY@0600 LAB 09/19/18 06:00 Ordered CBC W/ AUTO DIFF DAILY@0600 LAB 09/20/18 06:00 Ordered CBC W/ AUTO DIFF Stat LAB 09/18/18 23:00 Completed CK [CREATINE KINASE] Stat LAB 09/18/18 23:00 Completed COMPREHENSIVE METABOLIC PANEL Stat LAB 09/18/18 23:00 Completed FLU A/B MOLECULAR Stat LAB 09/18/18 22:40 Completed LACTIC ACID Stat LAB 09/18/18 23:00 Completed MOLECULAR GROUP A STREP Stat LAB 09/18/18 22:40 Completed PROCALCITONIN Stat LAB 09/18/18 23:00 Completed SPUTUM CULTURE Stat LAB 09/19/18 00:04 Uncollected THYROID STIMULATING HORMONE Stat LAB 09/18/18 23:00 Completed TROPONIN I Stat LAB 09/18/18 23:00 Completed URINALYSIS C & S IF INDICATED Stat LAB 09/18/18 22:47 Uncollected 0.9 % Sodium Chloride [Saline Flush] MEDS 09/18/18 23:14 Ordered 1 syr IVF PRN PRN Acetaminophen [Tylenol] MEDS 09/19/18 00:15 Ordered 650 mg PO Q4H PRN Azithromycin [Zithromax] MEDS 09/19/18 00:02 Discontinued 500 mg PO ONCE STA Butorphanol Tartrate [Stadol] MEDS 09/18/18 23:42 Discontinued 2 mg IVP ONCE STA Ceftriaxone Sodium [Rocephin] 1 gm MEDS 09/19/18 00:02 Active 0.9 % Sodium Chloride [Sodium Chloride] 50 ml IV ONCE Enoxaparin Sodium [Lovenox] MEDS 09/19/18 09:00 Ordered 40 mg SUBCUT DAILY Ipratropium/Albuterol Neb [Duoneb] MEDS 09/18/18 22:47 Discontinued 1 vial NEB ONCE STA Ipratropium/Albuterol Neb [Duoneb] MEDS 09/19/18 00:15 Ordered 1 vial NEB RTQ4H PRN Ipratropium/Albuterol Neb [Duoneb] MEDS 09/19/18 06:00 Ordered 1 vial NEB RTQID Ketorolac Tromethamine [Toradol] MEDS 09/18/18 22:47 Discontinued 30 mg IVP ONCE STA Morphine Sulfate [Morphine 2 mg/ml Syringe] MEDS 09/19/18 00:15 Ordered 2 mg IVP Q4H PRN Ondansetron HCl/Pf [Zofran 4 mg/2 ml] MEDS 09/19/18 00:15 Ordered 4 mg IVP Q6H PRN Potassium Chloride [K-Dur] MEDS 09/19/18 00:06 Discontinued 20 meq PO ONCE STA Potassium Chloride in 0.9%NaCl [Sodium Chloride 0.9%- MEDS 09/19/18 00:30 Ordered KCl 20 Meq] 1,000 ml IV 125 mls/hr Ringers Lactated Solution [Lactated Ringers] 1,000 ml MEDS 09/18/18 22:47 Discontinued IV BOLUS RESUSCITATION STATUS Routine OTHERS 09/19/18 00:15 Ordered CHEST, 2 VIEWS PA & LAT Stat RADS 09/18/18 22:47 Taken Medications Generic Name Dose Route Start Last Admin Trade Name Freq PRN Reason Stop Dose Admin Ceftriaxone Sodium 1 gm/ 50 mls @ 75 mls/hr 09/19/18 00:02 Sodium Chloride IV 09/19/18 00:41 ONCE STA Sodium Chloride 1 syr 09/18/18 23:14 09/18/18 23:48 Saline Flush IVF 1 syr PRN PRN Administration To flush IV Discontinued Medications Generic Name Dose Route Start Last Admin Trade Name Freq PRN Reason Stop Dose Admin Albuterol/Ipratropium 1 vial 09/18/18 22:47 Duoneb NEB 09/18/18 22:48 ONCE STA Azithromycin 500 mg 09/19/18 00:02 Zithromax PO 09/19/18 00:03 ONCE STA Butorphanol Tartrate 2 mg 09/18/18 23:42 09/18/18 23:48 Stadol IVP 09/18/18 23:43 2 mg ONCE STA Administration Lactated Ringer's 1,000 mls @ 1,000 mls/hr 09/18/18 22:47 09/18/18 23:08 Lactated Ringers IV 09/18/18 23:46 1,000 mls/hr BOLUS STA Administration Ketorolac Tromethamine 30 mg 09/18/18 22:47 09/18/18 23:08 Toradol IVP 09/18/18 22:48 30 mg ONCE STA Administration Potassium Chloride 20 meq 09/19/18 00:06 K-Dur PO 09/19/18 00:07 ONCE STA Vital Signs: Temp Pulse Resp BP Pulse Ox 09/18/18 22:17 98.5 F 120 H 22 127/90 94 L Departure - Departure Time of Disposition: 00:20 Disposition: ADMITTED INPATIENT Discharge Problem: Headache Community acquired pneumonia Qualifiers: Laterality: right Lung location: middle lobe of lung Qualified Code(s): J18.1 - Lobar pneumonia, unspecified organism Instructions: Wheezing (ED) Condition: Stable Pt referred to PMD for follow-up: Yes IPMP verified?: No Allergies/Adverse Reactions: Allergies codeine Adverse Reaction (Verified 09/18/18 22:25) Vomiting Home Medications: Ambulatory Orders 1 [No Reported Medications] 09/18/18 Disposition Discussed With: Patient
[2018-09-18] MEDS ORDERED: STADOL IVP STA (23:42)
[2018-09-19] MEDS ORDERED: ROCEPHIN 1 GM in SODIUM CHLORIDE 50 ML IV STA (00:02)
[2018-09-19] MEDS ORDERED: ZITHROMAX PO STA (00:02)
[2018-09-19] MEDS ORDERED: K-DUR PO STA (00:06)
--- NOTE | 2018-09-19 00:14 | DI ---
EXAM: Chest, two views, 09/18/2018 HISTORY: Cough COMPARISON: 08/08/2017 FINDINGS / IMPRESSION: Cardiomediastinal contours appear stable. The left lung remains well aerated . Diffuse peribronchial thickening suggestive of bronchitis/bronchiolitis. Dense consolidation is present within the dependent aspect of the right upper lobe. This may represe nt a combination of atelectasis and pneumonia. Neoplastic process not excluded. Short-term follow-u p radiographs would be of benefit. CT could also be obtained for further characterization.
[2018-09-19] MEDS ORDERED: DUONEB NEB PRN (00:15)
[2018-09-19] MEDS ORDERED: MORPHINE 2 MG/ML SYRINGE IVP PRN (00:15)
[2018-09-19] MEDS ORDERED: ZOFRAN 4 MG/2 ML IVP PRN (00:15)
[2018-09-19] MEDS ORDERED: TYLENOL PO PRN (00:15)
[2018-09-19] MEDS ORDERED: ROCEPHIN ONE (00:19)
[2018-09-19] MEDS ORDERED: SODIUM CHLORIDE 0.9%-KCL 20 MEQ 1,000 ML IV SCH (00:30)
[2018-09-19] MEDS ORDERED: NICODERM 21 MG TD SCH (01:00)
[2018-09-19 01:56] VITALS: TEMP 99.3
[2018-09-19] MEDS ORDERED: ZITHROMAX ONE (02:11)
[2018-09-19] MEDS ORDERED: NICODERM 21 MG TD ONE (02:11)
[2018-09-19] MEDS ORDERED: TYLENOL ONE (02:11)
[2018-09-19] MEDS ORDERED: DUONEB NEB SCH (06:00)
[2018-09-19] MEDS ORDERED: LOVENOX SUBCUT SCH (09:00)
[2018-09-19] MEDS ORDERED: ROCEPHIN 1 GM in SODIUM CHLORIDE 50 ML IV SCH (09:00)
[2018-09-20] MEDS ORDERED: ZITHROMAX PO SCH (09:00)
--- NOTE | 2018-09-24 14:02 | SSS ---
DATE OF SERVICE: 09/19/18 (Admit) 09/19/18 (Left AMA) CHIEF COMPLAINT/HISTORY OF PRESENT ILLNESS: 53-year-old female who presented to the emergency room 10:17 p.m. because of cough, temperature at home of 100.3, chest hurting in the right rib area when coughing, feels congested. The patient on presentation has a temperature of 98.5, pulse 120, respiratory rate 22, oxygen saturation 94 on room air, blood pressure 127/90. Pain level rated at 10 on a scale of 1 to 10. The patient had taken Excedrin Migraine over- the-counter 6 hours prior to presentation. She measured 5'6", 244 lbs. PAST MEDICAL HISTORY: The patient had hypothyroidism but did not take her medication - reason - no money to buy. Also, asthma, kidney stones, depression and anxiety, arthritis, frequent headaches. PAST SURGICAL HISTORY: Previous cholecystectomy. LAST MENSTRUAL CYCLE: 2013 SOCIAL HISTORY: The patient was described as a heavy tobacco smoker, current every day smoker. HOSPITAL COURSE: I was notified or called by the emergency room physician, Dr. Alexis and described the patient's problems to me, told me that this patient was a patient of Treva Hart. He also mentioned that I had seen the patient. As a result, I did review the records and the patient had not been seen by Treva for three years exactly, last time was 09/20/15. She was admitted to this facility 08/03/17 , diagnosis influenza B with hypoxia and bronchitis. The patient was instructed to see Treva Hart and she never did followup with her. She was seen by Vidhi Guillen 07/26/[address] Kuo at the emergency room as an emergency room physician. The patient then does not belong to a clinic with Treva. Essentially doesn't have any primary care provider. The patient arrived on the floor at 12: 48 a.m. Her vital signs showed a temperature 99.3, pulse 113, blood pressure 115/77, respiratory rate 18, oxygen saturation 96 on room air. Weight 244 lbs, height 5'6", similar to the emergency room. This patient did receive pain medications in the emergency room beginning with Stadol, Toradol intravenously and then Morphine. She also received Zithromax p.o. and Ceftriaxone 1 gm intravenously. The patient did complain of pain in both ears however the review of systems does not mention any symptoms. I was contacted by Lis MANZANARES about 3: 00 or thereabouts that the patient is dressed and is going home. The patient's reason for going home is that her was to bring her daughter but did not and believes her daughter is home alone. The patient was advised that it is not advisable to go home but no one can stop her. I did tell Lis Manzanares that she needs to see her primary care provider tomorrow. I had not had a chance to examine this patient. She came onto the floor at 12:48 a.m., last note entered by the nurse 09/19/18 at 3:15 a.m. DIAGNOSIS: (Per emergency room M.D. plus chest x-ray) 1. RIGHT UPPER LOBE PNEUMONITIS. 2. CHRONIC TOBACCO USE AND ABUSE, PERSISTENT. 3. ELEVATED BMI OR HYPOXEMIA. Again, this patient is not a patient of the clinic. She had not seen Treva for three years and did not followup with her as per recommendation in her previous admission more than a year ago. TIME SPENT: GREATER THAN 65 MINUTES MTDD
== END 2018-09-19 03:15 | disposition left against medical advice (07) ==
LOC: ED 22:13 → MEDSURG B 09-19 00:22 → INTOOBSV 09-19 00:22 → UNDOADMOB 09-19 00:22 → UNDODISOB 09-19 03:15
PROVIDERS: ADMIT General Practice; ATTEND General Practice
DX: J18.1 Lobar pneumonia, unspecified organism (principal); H92.03 Otalgia, bilateral; M25.50 Pain in unspecified joint; F41.9 Anxiety disorder, unspecified; R05 Cough; R51 Headache; R06.02 Shortness of breath; R06.2 Wheezing; R00.0 Tachycardia, unspecified; Z72.0 Tobacco use
CPT/HCPCS: 36415; 80053; 82550; 82553; 82803; 83605; 84145; 84443; 84484; 85025; 87040; 87070; 87186; 87502; 87651; 93005; 93010; 94640; 96360; 96361; 96365; 96375; 99284

== ENCOUNTER 2018-09-19 21:08 | Inpatient (IN) ==
[2018-09-19] MEDS ORDERED: ROCEPHIN 1 GM in SODIUM CHLORIDE 50 ML IV STA (21:31)
[2018-09-19] MEDS ORDERED: TORADOL IVP STA (21:49)
[2018-09-19] MEDS ORDERED: ROCEPHIN ONE (21:53)
--- NOTE | 2018-09-19 22:44 | CT ---
EXAM: CT chest without contrast. HISTORY: Cough. PROCEDURE: Contiguous axial CT images of the chest without contrast with coronal and sagittal reform ats. FINDINGS: The heart is within normal limits in size. The thoracic aorta is within normal limits in d iameter. There are calcified mediastinal and hilar lymph nodes. There are right upper lobe infiltra izaiah and consolidation consistent with pneumonia. There is a calcified granuloma in the right lower l obe. There are degenerative changes in the spine. There are no acute findings in the visualized por tion of the abdomen. Impression: Right upper lobe infiltrates and consolidation, consistent with pneumonia. Small pericardial effusion as described.
--- NOTE | 2018-09-19 22:54 | ED.PDOC ---
General ED Provider: Dr. YENIFER COSTELLO-ER Chief Complaint: Cough Stated Complaint: was admitted to dr mondragon for pneumonia--was advised to come back to the hospital due to bacteria in bloodstream---documentation billing clerk states dr mondragon indicated he would not care for the patient upon return Time Seen by Physician: 21:20 Mode of Arrival: Walk-In Information Source: Patient Exam Limitations: No limitations Nursing and Triage Documentation Reviewed and Agree: Yes Does patient meet sepsis criteria?: No System Inflammatory Response Syndrome: Not Applicable Sepsis Protocol: For patient's 13 years and over: Temp is 96.8 and below OR 101 and greater Pulse >90 BPM Resp >20/minute Acutely Altered Mental Status Are patient's symptoms suggestive of a new infection, such as: -Pneumonia -Skin, Soft Tissue -Endocarditis -UTI -Bone, Joint Infection -Implantable Device -Acute Abdominal Infection -Wound Infection -Meningitis -Blood Stream Catheter Infection -Unknown Respiratory Complaint Exam - Respiratory Complaint/Exam Onset/Duration: 2 days Symptoms Are: Still present Timing: Constant Initial Severity: Mild Current Severity: Mild Location: Chest Character: Reports: Productive cough Aggravating: Reports: URI Associated Signs and Symptoms: Reports: Dyspnea, Fever, URI. Denies: Rapid breathing History of Healthcare-Acquired Pneumonia: No Tuberculosis Risk Factors: Reports: Alcohol abuse Home Oxygen Use: No Recent Stress Test: No Recent Echo/LV Function: No Current Antibiotic Use: Yes Current Asthma Medication Use: No Respiratory Distress: None Inadequate Respiratory Effort: No Dysphagia Present: No JVD Present: No Accessory Muscle Use: No Retractions: Not Present Diminished Breath Sounds: No Sinus Tenderness: None Grunting Respirations: No Kussmaul Respirations: No Differential Diagnoses: Pneumonia Review of Systems - Review Of Systems Constitutional: Reports: No symptoms Eyes: Reports: No symptoms Ears, Nose, Mouth, Throat: Reports: No symptoms Respiratory: Reports: Cough Cardiac: Reports: No symptoms GI: Reports: No symptoms : Reports: No symptoms Musculoskeletal: Reports: No symptoms Skin: Reports: No symptoms Neurological: Reports: No symptoms Endocrine: Reports: No symptoms Hematologic/Lymphatic: Reports: No symptoms All Other Systems: Reviewed and Negative Past Medical History - Past Medical History Previously Healthy: Yes Endocrine: Reports: Hypothyroid, Dyslipidemia Cardiovascular: Reports: None Respiratory: Reports: None Hematological: Reports: None Gastrointestinal: Reports: None Genitourinary: Reports: Kidney stones Neuro/Psych: Reports: Anxiety, Depression Musculoskeletal: Reports: None Cancer: Reports: None Last Menstrual Period: 2013 Other Pertinent Past Medical History: 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 - Surgical History General Surgical History: Reports: , Cholecystectomy, Other (lip surgery; eye surgery; Bartholin Gland surgery; ) - Family History Family History: Reports: None - Social History Smoking Status: Heavy tobacco smoker, Current every day smoker Hx Substance Use: Yes (marijuana) Alcohol Screening: None - Immunizations Tetanus Shot up to Date: Yes Physical Exam - Physical Exam Appearance: Well-appearing Eyes: SEPIDEH, EOMI, Conjunctiva clear ENT: Ears normal Neck: Supple Respiratory: Crackles, Rhonchi Cardiovascular: RRR, Pulses normal, No rub, No murmur GI/: Soft, Nontender, No masses, Bowel sounds normal, No Organomegaly Musculoskeletal: Normal strength, ROM intact, No edema, No calf tenderness Skin: Warm, Dry, Normal color Neurological: Sensation intact, Motor intact, Reflexes intact, Cranial nerves intact, Alert, Oriented Psychiatric: Affect appropriate, Mood appropriate Interpretation - Radiology Interpretation Radiology Interpretation By: Radiologist Radiology Results: Positive Exam Interpreted: CT Scan - EKG Interpretation Time of EKG #1: 22:55 Rate: Normal Rhythm: Sinus Ectopy: None Willis: NL ST Segment: Normal Interpretation: nsr Critical Care Note - Critical Care Note Total Time (mins): 0 Course - Course Hematology/Chemistry: 09/19/18 21:45 09/19/18 21:45 Orders, Labs, Meds: Lab Review 09/19/18 09/19/18 09/19/18 21:30 21:45 21:45 WBC 14.36 H D RBC 3.50 L Hgb 11.2 L Hct 33.0 L MCV 94.3 MCH 32.0 H MCHC 33.9 RDW Coeff of Stacey 13.2 Plt Count 239 Immature Gran % (Auto) 2.4 Neut % (Auto) 70.1 Lymph % (Auto) 18.0 [place] % (Auto) 7.7 Eos % (Auto) 1.5 Baso % (Auto) 0.3 Immature Gran # (Auto) 0.4 Neut # (Auto) 10.0 H Lymph # (Auto) 2.6 [place] # (Auto) 1.1 Eos # (Auto) 0.2 Baso # (Auto) 0.1 Puncture Site Lrad O2 Saturation 96.0 ABG pH 7.402 ABG pCO2 40.5 ABG pO2 81.0 L ABG HCO3 25.2 ABG Total CO2 26 ABG Base Excess 0 Oren Test + FiO2 % 21.0 Sodium 138.7 Potassium 3.19 L Chloride 101.9 Carbon Dioxide 25.3 Anion Gap 14.69 BUN 19.9 H Creatinine 0.91 Estimated GFR (MDRD) 65.00 BUN/Creatinine Ratio 21.86 Glucose 123.0 H Calcium 9.20 Total Bilirubin 0.34 AST 45.6 H ALT 38.5 H Alkaline Phosphatase 133.0 H Total Protein 7.99 Albumin 4.23 Globulin 3.76 Albumin/Globulin Ratio 1.12 Influ A Molecular Assay Influ B Molecular Assay 09/19/18 21:49 WBC RBC Hgb Hct MCV MCH MCHC RDW Coeff of Stacey Plt Count Immature Gran % (Auto) Neut % (Auto) Lymph % (Auto) [place] % (Auto) Eos % (Auto) Baso % (Auto) Immature Gran # (Auto) Neut # (Auto) Lymph # (Auto) [place] # (Auto) Eos # (Auto) Baso # (Auto) Puncture Site O2 Saturation ABG pH ABG pCO2 ABG pO2 ABG HCO3 ABG Total CO2 ABG Base Excess Oren Test FiO2 % Sodium Potassium Chloride Carbon Dioxide Anion Gap BUN Creatinine Estimated GFR (MDRD) BUN/Creatinine Ratio Glucose Calcium Total Bilirubin AST ALT Alkaline Phosphatase Total Protein Albumin Globulin Albumin/Globulin Ratio Influ A Molecular Assay Negative by naat Influ B Molecular Assay Negative by naat Orders Category Date Time Status ABG DRAW REQUEST Stat CARDIO 09/19/18 21:30 Completed EKG-(ED ONLY) Stat CARDIO 09/19/18 21:30 Completed ED IV/MEDIPORT/POWERPORT .ONCE EMERGENCY 09/19/18 21:30 Active ABG Stat LAB 09/19/18 21:30 Completed BLOOD CULTURE (ED ONLY) Stat LAB 09/19/18 21:45 Received CBC W/ AUTO DIFF Stat LAB 09/19/18 21:45 Completed COMPREHENSIVE METABOLIC PANEL Stat LAB 09/19/18 21:45 Completed FLU A/B MOLECULAR Stat LAB 09/19/18 21:49 Completed 0.9 % Sodium Chloride [Saline Flush] MEDS 09/19/18 21:30 Ordered 1 syr IVF PRN PRN Ceftriaxone Sodium [Rocephin] MEDS 09/19/18 21:53 Discontinued 1 gm .ROUTE .STK-MED ONE Ceftriaxone Sodium [Rocephin] 1 gm MEDS 09/19/18 21:31 Discontinued 0.9 % Sodium Chloride [Sodium Chloride] 50 ml IV ONCE Ketorolac Tromethamine [Toradol] MEDS 09/19/18 21:49 Discontinued 30 mg IVP ONCE STA CT CHEST W/O CONTRAST Stat RADS 09/19/18 21:31 Completed Medications Generic Name Dose Route Start Last Admin Trade Name Freq PRN Reason Stop Dose Admin Sodium Chloride 1 syr 09/19/18 21:30 09/19/18 22:06 Saline Flush IVF 1 syr PRN PRN Administration To flush IV Discontinued Medications Generic Name Dose Route Start Last Admin Trade Name Freq PRN Reason Stop Dose Admin Ceftriaxone Sodium 1 gm/ 50 mls @ 75 mls/hr 09/19/18 21:31 09/19/18 22:07 Sodium Chloride IV 09/19/18 22:10 75 mls/hr ONCE STA Administration Ketorolac Tromethamine 30 mg 09/19/18 21:49 09/19/18 22:05 Toradol IVP 09/19/18 21:50 30 mg ONCE STA Administration Vital Signs: Temp Pulse Resp BP Pulse Ox 09/19/18 21:16 99.2 F 102 H 22 130/75 94 L Departure - Departure Time of Disposition: 22:55 Disposition: HOME SELF-CARE Discharge Problem: Bacteremia Pneumonia Qualifiers: Pneumonia type: due to unspecified organism Laterality: unspecified laterality Lung location: unspecified part of lung Qualified Code(s): J18.9 - Pneumonia, unspecified organism Instructions: Pneumonitis (ED) Condition: Good Pt referred to PMD for follow-up: No IPMP verified?: No Allergies/Adverse Reactions: Allergies codeine Adverse Reaction (Verified 09/19/18 21:25) Vomiting Home Medications: Ambulatory Orders 1 [No Reported Medications] 09/18/18 Disposition Discussed With: Patient, Family
[2018-09-19] MEDS ORDERED: TYLENOL PO PRN (22:57)
[2018-09-19] MEDS ORDERED: ZITHROMAX 500 MG in SODIUM CHLORIDE 250 ML IV SCH (23:00)
[2018-09-19] MEDS: DUONEB NEB SCH (23:42)
[2018-09-19 23:46] VITALS: BMI 39.8
[2018-09-20] MEDS: SODIUM CHLORIDE 1,000 ML IV SCH (00:23)
[2018-09-20] MEDS: NORCO 7.5-325 PO PRN ×4 (00:24→14:18)
[2018-09-20] MEDS: NICODERM 21 MG TD SCH ×2 (00:25→08:39)
[2018-09-20] MEDS: DUONEB NEB SCH ×4 (05:09→22:13)
[2018-09-20] MEDS: LOVENOX SUBCUT SCH (08:39)
[2018-09-20] MEDS: PERCOCET 7.5-325 PO PRN ×2 (18:36→22:43)
[2018-09-20] MEDS ORDERED: ZITHROMAX 500 MG in SODIUM CHLORIDE 250 ML IV SCH (21:00)
[2018-09-20] MEDS ORDERED: ROCEPHIN 1 GM in SODIUM CHLORIDE 50 ML IV SCH (21:00)
[2018-09-21] MEDS: PERCOCET 7.5-325 PO PRN ×5 (03:14→21:35)
[2018-09-21] MEDS: DUONEB NEB SCH ×4 (05:45→23:20)
[2018-09-21] MEDS: NICODERM 21 MG TD SCH (08:19)
[2018-09-21] MEDS: LOVENOX SUBCUT SCH (08:20)
[2018-09-21] MEDS: SODIUM CHLORIDE 1,000 ML IV SCH (09:28)
[2018-09-21] MEDS: LEVAQUIN PO SCH (13:10)
[2018-09-22] MEDS: PERCOCET 7.5-325 PO PRN ×3 (02:15→10:18)
[2018-09-22] MEDS: DUONEB NEB SCH ×2 (04:44→11:13)
[2018-09-22 04:57] VITALS: BP 153/92; TEMP 98.4
[2018-09-22] MEDS: LEVAQUIN PO SCH (05:36)
[2018-09-22] MEDS: NICODERM 21 MG TD SCH (08:03)
[2018-09-22] MEDS: LOVENOX SUBCUT SCH (08:06)
--- NOTE | 2018-12-10 11:32 | HP ---
DATE OF SERVICE: 09/19/18 DISCUSSION: This is a 53-year-old lady who was recently admitted to Dr. Preston's services. Ms. Barclay was recently admitted to Dr. Preston for treatment of pneumonia and she left against medical advice (AMA). She was advised to come back to the hospital due to she had some bacteria in her bloodstream. The staff here contacted Dr. Preston and he indicted that he would not care for the patient upon return so because of her bacteremia she was admitted to my services as hospitalist. PAST MEDICAL HISTORY: MEDICATIONS: Denies any home medications. ALLERGIES: CODEINE PAST MEDICAL HISTORY: Significant for history of alcohol abuse She does have a history of hypothyroidism Dyslipidemia Anxiety Depression PAST SURGICAL HISTORY: section Cholecystectomy History of lip surgery Eye surgery SOCIAL HISTORY: She is a heavy smoker. She smokes one pack per day. She does admit to using marijuana socially. Denies any alcohol use. FAMILY HISTORY: Reviewed and no familial tendencies. REVIEW OF SYSTEMS: She has had an improving cough. Denies any sore throat. Denies any hemoptysis. Denies any shortness of breath. No abdominal pain, blood in the stool, urinary symptoms or seizures. PHYSICAL EXAMINATION: V/S: Temperature 99.2, pulse 100, respiratory rate 20, blood pressure 135/70. HEENT: Pupils are round. NECK: Supple. CHEST: Clear. CARDIOVASCULAR: Regular rate and rhythm. ABDOMEN: Soft, nontender. EXTREMITIES: Distal extremities without cyanosis or edema. ASSESSMENT: 1. Pneumonia. 2. Bacteremia. PLAN: 1. Because of bacteremia, she will be admitted for further IV antibiotic therapy. She does not appear to be clinically septic however. She will be admitted to my services as hospitalist as Dr. Preston declines the admission. 2. Please see orders. MTDD
--- NOTE | 2018-12-10 11:37 | AMA ---
DATE OF SERVICE: 09/22/18 PRINCIPAL DIAGNOSIS: 1. Pneumonia 2. Bacteremia DISCUSSION: This is a 53-year-old lady who was recently admitted to Dr. Preston's services. Ms. Barclay was recently admitted to Dr. Preston for treatment of pneumonia and she left against medical advice (AMA). She was advised to come back to the hospital due to she had some bacteria in her bloodstream. The staff here contacted Dr. Preston and he indicted that he would not care for the patient upon return so because of her bacteremia she was admitted to my services as hospitalist. CLINICAL COURSE: She did very well during hospitalization. Her fever had resolved. She had no shortness of her breath. Her oximetry was good. Again, CT scan revealed right upper lobe infiltrate and consolidation however she did very well during hospitalization. However, on 09/22/18 she decided to leave the hospital against medical advice. We tried to convince her to stay and complete her course of treatment however she declined and decided to leave the hospital AMA. VERÓNICA
== END 2018-09-22 12:23 | disposition left against medical advice (07) | DRG 871 ==
LOC: ED 21:08 → MEDSURG B 23:02
PROVIDERS: ADMIT Family Medicine; ATTEND Family Medicine
DX: R78.81 Bacteremia (principal); J18.9 Pneumonia, unspecified organism; J06.9 Acute upper respiratory infection, unspecified; R06.00 Dyspnea, unspecified; R50.9 Fever, unspecified; F10.10 Alcohol abuse, uncomplicated; Z72.0 Tobacco use
CPT/HCPCS: 36415; 80053; 82803; 85007; 85025; 87040; 87081; 87502; 93005; 93010; 94640; 96365; 96375; 99284

== ENCOUNTER 2019-02-08 16:28 | Emergency (ER) ==
[2019-02-08 16:30] VITALS: BP 157/104; TEMP 97.7; BMI 38.5
--- NOTE | 2019-02-08 16:39 | ED.PDOC ---
General ED Provider: Dr. YENIFER COSTELLO-ER Chief Complaint: Tooth Problem Stated Complaint: my tooth hurts Time Seen by Physician: 16:37 Mode of Arrival: Walk-In Information Source: Patient Exam Limitations: No limitations [facility] Nursing and Triage Documentation Reviewed and Agree: Yes Does patient meet sepsis criteria?: No System Inflammatory Response Syndrome: Not Applicable Sepsis Protocol: For patient's 13 years and over: Temp is 96.8 and below OR 101 and greater Pulse >90 BPM Resp >20/minute Acutely Altered Mental Status Are patient's symptoms suggestive of a new infection, such as: -Pneumonia -Skin, Soft Tissue -Endocarditis -UTI -Bone, Joint Infection -Implantable Device -Acute Abdominal Infection -Wound Infection -Meningitis -Blood Stream Catheter Infection -Unknown EENT Complaint Exam - Dental/Oral Complaint/Exam Mechanism of Injury: No known trauma Onset/Duration: 3 days Symptoms Are: Still present Timing: Constant Initial Severity: Mild Current Severity: Moderate Location: front tooth Character: Reports: Dull, Aching, Throbbing Aggravating: Reports: Heat, Cold, Chewing Associated Signs and Symptoms: Reports: Swelling Tooth Findings: Present: Gross decay, Gross caries Cervical Lymphadenopathy Present: No Facial Swelling Present: No Bleeding Present: No Oropharynx Findings: Absent: Clots, Active bleeding Septal Hematoma: No Foreign Body Present: No Dysphagia Present: No Drooling Present: No Asymmetrical Tonsillar Swelling Present: No Uvula Midline: Yes Colleen-tonsillar Fluctuence: No Trismus Present: No Palatal Petechiae Present: No Scarlatinaform Rash Present: No Differential Diagnoses: Dental Caries Review of Systems - Review Of Systems Constitutional: Reports: No symptoms Eyes: Reports: No symptoms Ears, Nose, Mouth, Throat: Reports: Mouth pain, Mouth swelling Respiratory: Reports: No symptoms Cardiac: Reports: No symptoms GI: Reports: No symptoms : Reports: No symptoms Musculoskeletal: Reports: No symptoms Skin: Reports: No symptoms Neurological: Reports: No symptoms Endocrine: Reports: No symptoms Hematologic/Lymphatic: Reports: No symptoms All Other Systems: Reviewed and Negative Past Medical History - Past Medical History Previously Healthy: Yes Endocrine: Reports: Hypothyroid, Dyslipidemia Cardiovascular: Reports: None Respiratory: Reports: None Hematological: Reports: None Gastrointestinal: Reports: None Genitourinary: Reports: Kidney stones Neuro/Psych: Reports: Anxiety, Depression Musculoskeletal: Reports: None Cancer: Reports: None Last Menstrual Period: POST MENOPAUSAL Other Pertinent Past Medical History: 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 - Surgical History General Surgical History: Reports: , Cholecystectomy, Other (lip surgery; eye surgery; Bartholin Gland surgery; ) - Family History Family History: Reports: None - Social History Smoking Status: Heavy tobacco smoker, Current every day smoker Hx Substance Use: Yes (marijuana) Alcohol Screening: None - Immunizations Tetanus Shot up to Date: Yes Physical Exam - Physical Exam Appearance: Well-appearing, No pain distress, Well-nourished Eyes: SEPIDEH, EOMI, Conjunctiva clear ENT: Ears normal, Nose normal, Erythema Neck: Supple Respiratory: Airway patent, Breath sounds clear, Breath sounds equal, Respirations nonlabored Cardiovascular: RRR GI/: Soft, Nontender, No masses, Bowel sounds normal, No Organomegaly Musculoskeletal: Normal strength Skin: Warm, Dry, Normal color Neurological: Sensation intact, Motor intact, Reflexes intact, Cranial nerves intact, Alert, Oriented Psychiatric: Affect appropriate, Mood appropriate Critical Care Note - Critical Care Note Total Time (mins): 0 Course - Course Vital Signs: Temp Pulse Resp BP Pulse Ox 02/08/19 16:28 97.7 F 79 18 157/104 H 96 Departure - Departure Time of Disposition: 16:39 Disposition: HOME SELF-CARE Discharge Problem: Toothache Instructions: Toothache (ED) Condition: Good Pt referred to PMD for follow-up: Yes IPMP verified?: No Additional Instructions: f/u with dentist filiberto Allergies/Adverse Reactions: Allergies codeine Adverse Reaction (Verified 02/08/19 16:30) Vomiting Home Medications: Ambulatory Orders 1 [No Reported Medications] 09/18/18 Disposition Discussed With: Patient
== END 2019-02-08 16:50 | disposition home or self-care (01) ==
LOC: ED 16:28
DX: K08.89 Other specified disorders of teeth and supporting structures (principal); K02.7 Dental root caries; F17.210 Nicotine dependence, cigarettes, uncomplicated
CPT/HCPCS: 99282

== ENCOUNTER 2019-02-11 00:02 | Outpatient (CLI) ==
[2019-02-11 00:26] VITALS: BMI 35.5
== END 2019-02-11 00:07 | disposition critical access hospital (66) ==
LOC: AMBL 00:02
PROVIDERS: ATTEND Internal Medicine Geriatric Medicine
DX: T43.591A Poisoning by other antipsychotics and neuroleptics, accidental (unintentional), initial encounter (principal); R06.02 Shortness of breath

== ENCOUNTER 2019-02-11 00:13 | Emergency (ER) ==
[2019-02-11 00:26] VITALS: BMI 35.5
[2019-02-11] MEDS ORDERED: SODIUM CHLORIDE 1,000 ML IV STA (00:51)
--- NOTE | 2019-02-11 00:56 | ED.PDOC ---
General ED Provider: Dr. IAN MCGARRY Chief Complaint: Overdose Stated Complaint: Patient is a 53 year od female whos called 911 for complaints of shortness of breath, drowsiness and falling asleep. She is able to Awakens when asked questions. Apprently she states that she took 3 Serroquel Thinking that they were neurontin. (Which she has taken in the past) she was taking it for dental pain Time Seen by Physician: 00:53 Mode of Arrival: Ambulance Information Source: Patient, EMT Nursing and Triage Documentation Reviewed and Agree: Yes Does patient meet sepsis criteria?: No System Inflammatory Response Syndrome: Not Applicable Sepsis Protocol: For patient's 13 years and over: Temp is 96.8 and below OR 101 and greater Pulse >90 BPM Resp >20/minute Acutely Altered Mental Status Are patient's symptoms suggestive of a new infection, such as: -Pneumonia -Skin, Soft Tissue -Endocarditis -UTI -Bone, Joint Infection -Implantable Device -Acute Abdominal Infection -Wound Infection -Meningitis -Blood Stream Catheter Infection -Unknown Review of Systems - Review Of Systems Constitutional: Reports: Weakness Eyes: Reports: No symptoms Ears, Nose, Mouth, Throat: Reports: Mouth pain (Right dental caries ) Respiratory: Reports: No symptoms Cardiac: Reports: No symptoms GI: Reports: No symptoms : Reports: No symptoms Musculoskeletal: Reports: No symptoms Skin: Reports: No symptoms Neurological: Reports: Other (excessive sleepyness ) Endocrine: Reports: No symptoms Hematologic/Lymphatic: Reports: No symptoms All Other Systems: Reviewed and Negative Past Medical History - Past Medical History Previously Healthy: Yes Endocrine: Reports: Hypothyroid, Dyslipidemia Cardiovascular: Reports: None Respiratory: Reports: None Hematological: Reports: None Gastrointestinal: Reports: None Genitourinary: Reports: Kidney stones Neuro/Psych: Reports: Anxiety, Depression Musculoskeletal: Reports: None Cancer: Reports: None Last Menstrual Period: menopausal at 45 y/o Other Pertinent Past Medical History: 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 - Surgical History General Surgical History: Reports: , Cholecystectomy, Other (lip surgery; eye surgery; Bartholin Gland surgery; ) - Family History Family History: Reports: None - Social History Smoking Status: Heavy tobacco smoker, Current every day smoker Hx Substance Use: Yes (marijuana) Alcohol Screening: None - Immunizations Tetanus Shot up to Date: Yes Physical Exam - Physical Exam Appearance: Well-appearing, Obese Ill-appearing: None Pain Distress: None Eyes: SEPIDEH, EOMI, Conjunctiva clear ENT: Nose normal (Dental decay diffusly ) Neck: Supple Respiratory: Airway patent, Breath sounds clear, Breath sounds equal, Respirations nonlabored Cardiovascular: RRR, Pulses normal, No rub, No murmur GI/: Soft Musculoskeletal: Normal strength, ROM intact, No edema, No calf tenderness Skin: Warm, Dry, Normal color Neurological: Sensation intact, Motor intact, Reflexes intact, Cranial nerves intact, Alert, Oriented Psychiatric: Anxious Interpretation - EKG Interpretation Time of EKG #1: 00:41 Rate: Normal Rhythm: Sinus Ectopy: None ST Segment: Normal Interpretation: Low voltage EKG Critical Care Note - Critical Care Note Total Time (mins): 45 Course - Course Orders, Labs, Meds: Orders Category Date Time Status EKG-(ED ONLY) Stat CARDIO 02/11/19 00:40 Ordered ED CHILD AND FAMILY SERVICES SPECIALIST APPLIED ONCE EMERGENCY 02/11/19 00:40 Active ED IV/MEDIPORT/POWERPORT .ONCE EMERGENCY 02/11/19 00:51 Ordered ACETAMINOPHEN Stat LAB 02/11/19 00:40 Ordered BLOOD ALCOHOL Stat LAB 02/11/19 00:40 Ordered CBC W/ AUTO DIFF Stat LAB 02/11/19 00:40 Ordered COMPREHENSIVE METABOLIC PANEL Stat LAB 02/11/19 00:40 Ordered DRUG SCREEN, URINE, RAPID Stat LAB 02/11/19 00:40 Ordered SALICYLATE Stat LAB 02/11/19 00:40 Ordered URINALYSIS C & S IF INDICATED Stat LAB 02/11/19 00:40 Uncollected 0.9 % Sodium Chloride [Saline Flush] MEDS 02/11/19 00:51 Ordered 1 syr IVF PRN PRN SODIUM CHLORIDE 0.9% @ 1,000 MLS/HR(1,000ml) MEDS 02/11/19 00:51 Ordered Sodium Chloride 0.9% [Sodium Chloride] 1,000 ml IV BOLUS Medications Generic Name Dose Route Start Last Admin Trade Name Freq PRN Reason Stop Dose Admin Sodium Chloride 1,000 mls @ 1,000 mls/hr 02/11/19 00:51 Sodium Chloride IV 02/11/19 01:50 BOLUS STA Sodium Chloride 1 syr 02/11/19 00:51 Saline Flush IVF PRN PRN To flush IV Vital Signs: Temp Pulse Resp BP Pulse Ox 02/11/19 00:48 72 12 94/60 95 02/11/19 00:16 97 F L 88 16 67/44 L 95 Departure - Departure Time of Disposition: 02:30 Disposition: HOME SELF-CARE Discharge Problem: Drug overdose, Dental abscess Hypotension Qualifiers: Hypotension type: hypotension due to drug Qualified Code(s): I95.2 - Hypotension due to drugs Instructions: Adult Overdose (ED), Dental Abscess (ED) Condition: Fair Pt referred to PMD for follow-up: Yes IPMP verified?: No Additional Instructions: Follow up with PCP as needed Get you an organizer to avoid confusing medications Allergies/Adverse Reactions: Allergies codeine Adverse Reaction (Verified 02/11/19 00:26) Vomiting Home Medications: Ambulatory Orders Amoxicillin/Potassium Clav [Augmentin 875-125 mg Tab] 1 tab PO Q12HR #14 tablet 02/08/19 Hydrocodone Bit/Acetaminophen [[place] 5-325] 1 each PO Q4HR PRN #10 tablet Disposition Discussed With: Patient, Family
[2019-02-11] MEDS ORDERED: TORADOL IVP STA (01:05)
[2019-02-11 03:45] VITALS: BP 102/67; TEMP 97.9
== END 2019-02-11 05:40 | disposition home or self-care (01) ==
LOC: ED 00:13
DX: T43.591A Poisoning by other antipsychotics and neuroleptics, accidental (unintentional), initial encounter (principal); R06.02 Shortness of breath; I95.2 Hypotension due to drugs; K08.89 Other specified disorders of teeth and supporting structures; K04.7 Periapical abscess without sinus; F17.210 Nicotine dependence, cigarettes, uncomplicated
CPT/HCPCS: 36415; 80053; 80307; 85025; 93005; 93010; 96361; 96374; 96375; 99284